=== PATIENT | female | born 1950 | race Caucasian/White ===

== ENCOUNTER → 2018-02-06 09:56 | Outpatient (CLI) | payer BC, MEDICARE ==
[2015-02-17 13:55] VITALS: BMI 16.4
[~2018-02-06 09:56] MED LIST: AMITRIPTYLINE100 MG PO; CARAFATE1 G/10 ML PO; DEMADEX20 MG PO; HYDROCODONE-APA1 TAB PO; K-DUR20 MEQ PO; K-TAB10 MEQ PO; LEVSIN/ANASP0.125 MG PO; MIDODRINE HCL10 MG PO; PEPCID40 MG PO; PHENERGAN25 M1 PO; PRILOSEC20 MG PO; SENOKOT-S TABLE1 TAB PO; TYLENOL W/CODEI1 TAB PO; ULTRAM50 MG PO; ZANAFLEX2 M1 PO; ZOFRAN4 MG PO
== END | disposition home or self-care (01) ==
LOC: D.MRI 09:56
DX: M54.16 Radiculopathy, lumbar region (principal)

== ENCOUNTER 2018-07-26 07:45 | Inpatient (IN) | payer MEDICARE, BC ==
[~2018-07-26] VITALS: Ht 157.5 cm; Wt 27.7 kg
[2018-07-26] MEDS ORDERED: CARDIZEM LA120 MG PO (07:57)
[2018-07-26 10:08] LABS: BASOPHILS 0.2 % (0-2); EOSINOPHILS 0.1 % (0-7); HEMATOCRIT 45.2 % (36.0-48.0); HEMOGLOBIN 14.6 g/dL (12-16); IMMATURE GRANULOCYTES 0.5 % (0-5); LYMPHOCYTES 8.6 % (15-50); MCH 30.4 pg (26.0-34.0); MCHC 32.3 g/dL (31.0-37.0); MEAN PLATELET VOLUME 9.8 fL (7.4-10.4); MONOCYTES 5.2 % (2-11); NEUTROPHILS 85.4 % (40-80); PLATELET COUNT 209 10x3/uL (130-400); RBC 4.81 10x6/uL (4.00-5.40); RDW 15.9 % (11.5-14.5)
[2018-07-26 10:15] LABS: APPEARANCE HAZY (CLEAR); BACTERIA FEW /hpf (NONE SEEN); COLOR YELLOW (YELLOW); EPITHELIAL CELLS 0-5 /hpf (0-5); SPECIFIC GRAVITY 1.015 (1.005-1.020)
[2018-07-26 10:16] LABS: RED CELLS - URINE OCC /hpf (0-5); WHITE CELLS - URINE RARE /hpf (0-5)
[2018-07-26 10:31] LABS: ALBUMIN 3.7 g/dL (3.4-5.0); ANION GAP 14.6 mmol/L (8-16); BILIRUBIN - TOTAL 0.44 mg/dL (0.2-1.3); CALCIUM 9.1 mg/dL (8.5-10.1); CARBON DIOXIDE 28.4 mmol/L (21.0-32.0); CREATININE - SERUM 1.6 mg/dL (0.6-1.3); PROTEIN - SERUM 6.9 g/dL (6.4-8.2)
--- NOTE | 2018-07-26 13:04 | MORECARE ---
CASE MANAGEMENT DISCHARGE SUMMARY PATIENT: KARTHIK MYRICK UNIT: [id number] ADM DATE: 07/26/18 AGE: 67 : 48 SEX: F ROOM/BED: D.1205 AUTHOR: ASHISH HERRERA PHYSICIAN: REFERRING PHYSICIAN: SEAN CHOW MD DATE OF SERVICE: 07/26/18 Discharge Plan Patient Name: KARTHIK MYRICK [facility] [facility] 1950 Planned Disposition: Anticipated Discharge Date: 07/29/18 Discharge Date: Expected LOS: 3 Initial Reviewer: [email or web address] Initial Review Date: 07/26/2018 Generated: 07/26/18 2:04 pm DCPIA - Discharge Planning Initial Assessment Updated by [email or web address]: Cookie Haile on 07/26/18 1:03 pm * Is the patient Alert and Oriented? Yes * How many steps to enter\exit or inside your home? Two * PCP Dr. Chow * Pharmacy [facility] on [address] * Preadmission Environment Home with Family * ADLs Independent * Equipment Glucometer * List name and contact numbers for known caregivers / representatives who currently or will assist patient after discharge: Chris Myrick - [facility] - [phone] * Verbal permission to speak to the caregivers and representatives has been obtained from the patient. Yes * Community resources currently utilized None * Additional services required to return to the preadmission environment? No * Can the patient safely return to the preadmission environment? Yes * Has this patient been hospitalized within the prior 30 days at any hospital? No Patient Name: KARTHIK MYRICK Page [id number] at 1304 All edits/amendments must be made on the electronic document DICTATION DATE: 07/26/18 1304 GROUND CREWMAN AIRCRAFT SUPPORT: TINY 07/26/18 1304 RPT#: [id number] DC DATE: STATUS: ADM IN [facility] [address] [place] [address] END OF REPORT
--- NOTE | 2018-07-26 13:12 | MORECARE ---
CASE MANAGEMENT DISCHARGE SUMMARY PATIENT: KARTHIK MYRICK UNIT: [id number] ADM DATE: 07/26/18 AGE: 67 : 48 SEX: F ROOM/BED: D.1205 AUTHOR: SHARON,DOC PHYSICIAN: REFERRING PHYSICIAN: SEAN CHOW MD DATE OF SERVICE: 07/26/18 Discharge Plan Patient Name: KARTHIK MYRICK Facility: [facility]:[place] : 1950 Planned Disposition: Anticipated Discharge Date: 07/29/18 Discharge Date: Expected LOS: 3 Initial Reviewer: [email or web address] Initial Review Date: 07/26/2018 Generated: 07/26/18 2:11 pm DCP- Discharge Planning Updated by [email or web address]: Cookie Haile on 07/26/18 12:[address] Patient Name: KARTHIK MYRICK Admission Status: ER Accout number: [id number] Admission Date: 07-26-2018 : 1950 Admission Diagnosis: Attending: SEAN CHOW Current LOS: 1 Anticipated DC Date: 07-29-2018 Planned Disposition: Primary Insurance: MEDICARE A & B Discharge Planning Comments: CM met with patient and her spouse to complete initial dc planning assessment. CM educated patient on the CM role and verbal consent given by patient to complete assessment. Patient lives at home with her . She reports she is weak and falls frequently. CM asked how many times she falls in a month and she stated probably 3-4 times in a month. At discharge patient plans to return home with her and feels this is a safe discharge. CM discussed availability of home health, rehab services, and medical equipment. Patient denied the need for home health or any other resources at this time. CM will continue to follow and will assist as needed with dc plans/needs. Director Bioinformatics: Cookie Haile RN, [facility] DCPIA - Discharge Planning Initial Assessment Updated by [email or web address]: Cookie Haile on 07/26/18 1:03 pm * Is the patient Alert and Oriented? Yes * How many steps to enter\exit or inside your home? Two * PCP Dr. Chow * Pharmacy [facility] on [facility] * Preadmission Environment Home with Family * ADLs Independent * Equipment Glucometer * List name and contact numbers for known caregivers / representatives who currently or will assist patient after discharge: Chris yMrick - [facility] - [phone] * Verbal permission to speak to the caregivers and representatives has been obtained from the patient. Yes * Community resources currently utilized None * Additional services required to return to the preadmission environment? No * Can the patient safely return to the preadmission environment? Yes * Has this patient been hospitalized within the prior 30 days at any hospital? No Last DP export: 07/26/18 12:04 p Patient Name: KARTHIK MYRICK Page [phone] at 1312 All edits/amendments must be made on the electronic document DICTATION DATE: 07/26/181310 DAMAGE PREVENTION COORDINATOR: TINY 07/26/181310 RPT#: [id number] DC DATE: STATUS: ADM IN [facility] [address] [place] [address] END OF REPORT
[2018-07-26 13:27] VITALS: BP 121/70; BMI 11.2
[2018-07-26] MEDS ORDERED: MACROBID100 MG PO (13:32)
[2018-07-26] MEDS ORDERED: CREON (PANCRELI1 CAP PO (13:33)
--- NOTE | 2018-07-26 15:30 | NUR ---
PATIENT REFUSED BLUE CRABBER MORPHINE. STATES "MY PAIN IS NOT THAT BAD."
[2018-07-26 17:34] VITALS: BP 100/65
--- NOTE | 2018-07-26 17:35 | NUR ---
DR SWAIN BY TO SEE PATIENT. VISITING WITH FAMILY. DENIES ANY NEEDS AT THIS TIME.
--- NOTE | 2018-07-26 18:20 | NUR ---
DR MONSIVAIS BY TO SEE PATIENT. OK TO LEAVE IVF'S INFUSING AT 75 CC/HR VIA PUMP.
--- NOTE | 2018-07-26 18:41 | NUR ---
RESTING QUIETLY IN BED. FAMILY ALL GONE. JOSE ANTONIO MAT APPLIED. CALL LIGHT WITHIN REACH.
--- NOTE | 2018-07-26 19:37 | NUR ---
PT IN BED. DENIES NEEDS AT THIS TIME.
[2018-07-26 20:45] VITALS: BP 105/64
[2018-07-27 00:50] VITALS: BP 156/81
--- NOTE | 2018-07-27 05:22 | NUR ---
I have reviewed this patient and I concur with the Shift Assessment completed by the Licensed Practical Nurse today this shift.
[2018-07-27 05:43] VITALS: BP 120/69
[2018-07-27 06:36] LABS: BASOPHILS 0.2 % (0-2); EOSINOPHILS 0.9 % (0-7); IMMATURE GRANULOCYTES 0.5 % (0-5); LYMPHOCYTES 15.2 % (15-50); MCHC 31.7 g/dL (31.0-37.0); MCV 94.5 fL (80.0-100.0); MEAN PLATELET VOLUME 9.6 fL (7.4-10.4); MONOCYTES 7.9 % (2-11); NEUTROPHILS 75.3 % (40-80); PLATELET COUNT 173 10x3/uL (130-400); RDW 15.8 % (11.5-14.5)
[2018-07-27 06:50] LABS: HEMATOCRIT 32.8 % (36.0-48.0); HEMOGLOBIN 10.4 g/dL (12-16); RBC 3.47 10x6/uL (4.00-5.40); WBC 5.7 10x3/uL (4.8-10.8)
[2018-07-27 07:34] LABS: BILIRUBIN - TOTAL 0.37 mg/dL (0.2-1.3); CALCIUM 7.7 mg/dL (8.5-10.1); CREATININE - SERUM 1.2 mg/dL (0.6-1.3); PROTEIN - SERUM 5.5 g/dL (6.4-8.2)
[2018-07-27 07:37] LABS: ALBUMIN 2.6 g/dL (3.4-5.0); ANION GAP 16.3 mmol/L (8-16); CARBON DIOXIDE 18.6 mmol/L (21.0-32.0); POTASSIUM - SERUM 4.9 mmol/L (3.5-5.1)
[2018-07-27 09:07] VITALS: BP 118/72
--- NOTE | 2018-07-27 11:25 | NUR ---
PT SITTING UP IN BED RESTING. A/O X 4. FAMILY AT BEDSIDE. PROBE OPERATOR ROUNDING ON PT. VITALS STABLE. TOOK MEDS WITHOUT DIFFICULTY. L FOREARM NS @ 75. RM AIR. C/O BACK PAIN FROM PREVIOUS FALL AT HOME. SCHEDULED ULTRAM GIVEN. DENIES FURTHER CONERNS AT THIS TIME. BED LOWERED AND LOCKED. CL IN REACH. WILL CPOC.
[2018-07-27 12:00] VITALS: Ht 157.5 cm; Wt 27.7 kg
[2018-07-27 13:50] VITALS: BP 109/62
[2018-07-27 17:35] VITALS: BP 104/53
--- NOTE | 2018-07-27 17:44 | NUR ---
PT WALKED INTO [place] AND BACK WITH PHYSICAL THERAPY TODAY. GAIT UNSTEADY AND WEAK.
--- NOTE | 2018-07-27 18:35 | NUR ---
I have reviewed this patient and I concur with the Shift Assessment completed by the Licensed Practical Nurse today this shift.
--- NOTE | 2018-07-27 19:19 | NUR ---
PT IN BED. DENIES NEEDS AT THIS TIME.
[2018-07-27 19:30] VITALS: BP 105/59
--- NOTE | 2018-07-28 01:20 | NUR ---
I have reviewed this patient and I concur with the Shift Assessment completed by the Licensed Practical Nurse today this shift.
[2018-07-28 02:14] LABS: BASOPHILS 0.3 % (0-2); HEMATOCRIT 30.4 % (36.0-48.0); HEMOGLOBIN 9.5 g/dL (12-16); IMMATURE GRANULOCYTES 0.5 % (0-5); LYMPHOCYTES 18.3 % (15-50); MCH 30.1 pg (26.0-34.0); MCHC 31.3 g/dL (31.0-37.0); MCV 96.2 fL (80.0-100.0); MEAN PLATELET VOLUME 9.5 fL (7.4-10.4); MONOCYTES 6.1 % (2-11); NEUTROPHILS 73.8 % (40-80); PLATELET COUNT 144 10x3/uL (130-400); RBC 3.16 10x6/uL (4.00-5.40); RDW 15.8 % (11.5-14.5); WBC 3.9 10x3/uL (4.8-10.8)
[2018-07-28 02:29] LABS: ALBUMIN 2.2 g/dL (3.4-5.0); ALKALINE PHOSPHATASE 35 U/L (46-116); ALT (SGPT) 18 U/L (10-68); BILIRUBIN - TOTAL 0.17 mg/dL (0.2-1.3); CALC OSMOLALITY 280 mosm/kg (275-300); CALCIUM 7.2 mg/dL (8.5-10.1); CARBON DIOXIDE 17.2 mmol/L (21.0-32.0); CHLORIDE - SERUM 112 mmol/L (98-107); GLUCOSE 81 mg/dL (74-106); POTASSIUM - SERUM 5.3 mmol/L (3.5-5.1); PROTEIN - SERUM 4.6 g/dL (6.4-8.2); SODIUM 139 mmol/L (136-145); UREA NITROGEN 23 mg/dL (7-18); eGFR NON AFRICAN AMERICAN 75 mL/min (90-120)
[2018-07-28 02:33] LABS: CREATININE - SERUM 0.8 mg/dL (0.6-1.3)
[2018-07-28 04:00] VITALS: BP 106/58
[2018-07-28 06:38] LABS: BASOPHILS 0.3 % (0-2); EOSINOPHILS 1.2 % (0-7); HEMATOCRIT 31.6 % (36.0-48.0); HEMOGLOBIN 9.8 g/dL (12-16); IMMATURE GRANULOCYTES 0.6 % (0-5); LYMPHOCYTES 18.8 % (15-50); MCH 29.6 pg (26.0-34.0); MCV 95.5 fL (80.0-100.0); MEAN PLATELET VOLUME 9.6 fL (7.4-10.4); MONOCYTES 6.2 % (2-11); NEUTROPHILS 72.9 % (40-80); PLATELET COUNT 159 10x3/uL (130-400); RBC 3.31 10x6/uL (4.00-5.40); WBC 3.4 10x3/uL (4.8-10.8)
[2018-07-28 06:52] LABS: % SATURATION 43 % (15-55); IRON 94 ug/dl (35-150); TOTAL IRON BIND CAPACITY 215 ug/dl (260-445); UNSAT IRON BIND CAPACITY 121 ug/dl (150-375)
[2018-07-28 07:19] LABS: ALBUMIN 2.2 g/dL (3.4-5.0); ALKALINE PHOSPHATASE 38 U/L (46-116); ALT (SGPT) 19 U/L (10-68); BILIRUBIN - TOTAL 0.24 mg/dL (0.2-1.3); CALC OSMOLALITY 281 mosm/kg (275-300); CALCIUM 7.6 mg/dL (8.5-10.1); CARBON DIOXIDE 16.1 mmol/L (21.0-32.0); CHLORIDE - SERUM 112 mmol/L (98-107); CREATININE - SERUM 0.7 mg/dL (0.6-1.3); FERRITIN 97 ng/mL (3-244); GLUCOSE 75 mg/dL (74-106); SODIUM 141 mmol/L (136-145); UREA NITROGEN 18 mg/dL (7-18); eGFR NON AFRICAN AMERICAN 88 mL/min (90-120)
--- NOTE | 2018-07-28 07:29 | NUR ---
PT LAYING IN BED RESTING. C/O PAIN IN BACK. IV TO L FOREARM WITH NS @ 75 CC/HOUR. NO EDEMA NOTED. RM AIR. DENIES FURTHER COCNERNS AT THIS TIME. BED LOWERED AND LOCKED. CL IN REACH. WILL CPOC.
[2018-07-28 08:00] VITALS: BP 101/55
--- NOTE | 2018-07-28 10:09 | NUR ---
PT TOOK MEDS WITHOUT DIFFICULTY. FAMILY AT BEDSIDE. WILL CPOC.
[2018-07-28 12:00] VITALS: BP 112/69
--- NOTE | 2018-07-28 12:01 | NUR ---
PT UP WALKING AROUND NURSES STATION WITH PHYSICAL THERAPY
--- NOTE | 2018-07-28 13:25 | NUR ---
OT NOTE: PT REPORTED FEELING BETTER..UP IN CHAIR EATING LUNCH. STATED THAT IT WAS HER BIRTHDAY TODAY. REPORTED THAT SHE AMBULATED WITH PHYS THERAPY EARLIER. ABLE TO TRANSFER WITH MIN ASSIST. LALO GARCIA, OTR/L
--- NOTE | 2018-07-28 13:45 | NUR ---
I have reviewed this patient and I concur with the Shift Assessment completed by the Licensed Practical Nurse today this shift.
[2018-07-28 16:22] VITALS: BP 120/69
[2018-07-28 19:38] VITALS: BP 98/60
--- NOTE | 2018-07-28 20:08 | NUR ---
GREETED PATIENT AND INTRODUCED MYSELF HER NURSE FOR THE EVENING. PATIENT IS LAYING IN BED WATCHING TV. STATES PAIN IS 9/10 IN MIDDLE BACK. WCTM. CALL LIGHT IN REACH.
--- NOTE | 2018-07-28 23:11 | NUR ---
PATIENT RESTING QUIETLY. RESPIRATIONS EVEN. DENIES ANY NEEDS AT THIS TIME. CALL LIGHT IN REACH.
[2018-07-29 00:43] VITALS: BP 92/55
--- NOTE | 2018-07-29 03:13 | NUR ---
PATIENT ASLEEP WITH EYES CLOSED LAYING IN SUPINE POSITION. RESPIRATIONS EVEN. NO SIGNS OF DISTRESS. CALL LIGHT IN REACH.
[2018-07-29 04:24] VITALS: BP 108/61
--- NOTE | 2018-07-29 05:18 | NUR ---
PATIENT AWAKE AND ASSISTED TO BATHROOM. PATIENT HAD CLEAR YELLOW URINE. BACK TO BED AND REPOSITIONED FOR COMFORT. CALL LIGHT IN REACH.
[2018-07-29 06:48] LABS: BASOPHILS 0.2 % (0-2); EOSINOPHILS 1.2 % (0-7); HEMATOCRIT 34.2 % (36.0-48.0); HEMOGLOBIN 10.8 g/dL (12-16); IMMATURE GRANULOCYTES 0.7 % (0-5); LYMPHOCYTES 14.5 % (15-50); MCH 30.1 pg (26.0-34.0); MCHC 31.6 g/dL (31.0-37.0); MCV 95.3 fL (80.0-100.0); MEAN PLATELET VOLUME 9.1 fL (7.4-10.4); MONOCYTES 7.4 % (2-11); PLATELET COUNT 153 10x3/uL (130-400); RBC 3.59 10x6/uL (4.00-5.40); RDW 16.1 % (11.5-14.5); WBC 4.1 10x3/uL (4.8-10.8)
[2018-07-29 08:16] LABS: CALCIUM 8.3 mg/dL (8.5-10.1); CHLORIDE - SERUM 111 mmol/L (98-107); CREATININE - SERUM 0.7 mg/dL (0.6-1.3); GLUCOSE 78 mg/dL (74-106); POTASSIUM - SERUM 4.6 mmol/L (3.5-5.1); SODIUM 140 mmol/L (136-145); eGFR NON AFRICAN AMERICAN 88 mL/min (90-120)
[2018-07-29 08:27] LABS: CALC OSMOLALITY 276 mosm/kg (275-300); CARBON DIOXIDE 22.5 mmol/L (21.0-32.0); UREA NITROGEN 11 mg/dL (7-18)
[2018-07-29 09:07] VITALS: BP 102/60
[2018-07-29 12:28] VITALS: BP 109/59
[2018-07-29] MEDS ORDERED: FERROUS SULFAT325 MG PO (13:04)
[2018-07-29] MEDS ORDERED: VITAMIN D31000 UNI2 PO (13:07)
--- NOTE | 2018-07-29 13:14 | NUR ---
Pt is on a soft gluten free diet. Pt reports to RD that she broke her jaw in October. Prior to this she weighed 90-100lb. Pt reports she is still losing weight and had a recent weight loss. Pt states the kitchen is doing a good job of providing Gluten free diet Pt will not drink supplements but does like coke floats and chocolate shakes Will add a shake daily Weigh daily-if pt loses any more weight, may want to consider alternate nutritrion support RD following per protocol
--- NOTE | 2018-07-29 16:07 | NUR ---
PATIENT DISCHARGED VIA W/C WITH [facility] AT 1450 IV D/C'D AT 1435 DISCHARGED VIA W/C TO PRIVATE VEHICLE AND ALL BELONGINGS SENT WITH PT.
--- NOTE | 2018-07-29 17:19 | MORECARE ---
CASE MANAGEMENT DISCHARGE SUMMARY PATIENT: KARTHIK MYRICK UNIT: [id number] ADM DATE: 07/26/18 AGE: 68 : 48 SEX: F ROOM/BED: D.1205 AUTHOR: SHARON,DOC PHYSICIAN: REFERRING PHYSICIAN: SEAN CHOW MD DATE OF SERVICE: 07/29/18 Discharge Plan Patient Name: KARTHIK MYRICK Facility: [facility]:[place] : 1950 Planned Disposition: Anticipated Discharge Date: 07/29/18 Discharge Date: 07/29/2018 Expected LOS: 3 Initial Reviewer: [email or web address] Initial Review Date: 07/26/2018 Generated: 07/29/18 6:19 pm Comments DCP- Discharge Planning Updated by [email or web address]: Huma Jean on 07/29/18 4:[address] LATE ENTRY CM SPOKE WITH PATIENT PRIOR TO DISCHARGE. SHE WAS DRESSED AND READY TO DISCHARGE TO HOME. HER WAS PROVIDING TRANSPORTATION TO HOME. CM REOFFERED HOMEHEALTH SERVICES. PATIENT DENIED NEED . CM EXPLAINED HOW TO OBTAIN HOME HEALTH SHOULD SHE DESIRE POST DISCHARGE. DCP- Discharge Planning Updated by [email or web address]: Cookie Haile on 07/26/18 12:[address] Patient Name: KARTHIK MYRICK Admission Status: ER Accout number: [id number] Admission Date: 07-26-2018 : 1950 Admission Diagnosis: Attending: SEAN CHOW Current LOS: 1 Anticipated DC Date: 07-29-2018 Planned Disposition: Primary Insurance: MEDICARE A & B Discharge Planning Comments: CM met with patient and her spouse to complete initial dc planning assessment. CM educated patient on the CM role and verbal consent given by patient to complete assessment. Patient lives at home with her . She reports she is weak and falls frequently. CM asked how many times she falls in a month and she stated probably 3-4 times in a month. At discharge patient plans to return home with her and feels this is a safe discharge. CM discussed availability of home health, rehab services, and medical equipment. Patient denied the need for home health or any other resources at this time. CM will continue to follow and will assist as needed with dc plans/needs. Lepidopterist: Cookie Haile RN, [facility] DCPIA - Discharge Planning Initial Assessment Updated by [email or web address]: Cookie Haile on 07/26/18 1:03 pm * Is the patient Alert and Oriented? Yes * How many steps to enter\exit or inside your home? Two * PCP Dr. Chow * Pharmacy [facility] on [address] * Preadmission Environment Home with Family * ADLs Independent * Equipment Glucometer * List name and contact numbers for known caregivers / representatives who currently or will assist patient after discharge: Chris Myrick - [facility] - [phone] * Verbal permission to speak to the caregivers and representatives has been obtained from the patient. Yes * Community resources currently utilized None * Additional services required to return to the preadmission environment? No * Can the patient safely return to the preadmission environment? Yes * Has this patient been hospitalized within the prior 30 days at any hospital? No Coverage Notice Reviewer: [email or web address] - Huma Jean Notice Issued Date-Time: 07/29/2018 14:15 Notice Type: IM Discharge Notice Notice Delivered To: Patient Relationship to Patient: Self Cold Press Loader Name: Delivery Method: HAND - Hand Delivered Mariana Days: Prior Verbal Notification: Recipient Understood Notice: Yes Recipient Signature: Yes Med Rec Note Co-signed by Attending: Coverage Notice Comment: CM EXPLAINED D/C IMM. PATIENT STATES SHE UNDERSTOOD. D/C IMM SERVED. COPY TO PATIENT AND COPY TO HARD COVER CHART. Last DP export: 07/26/18 12:12 p Patient Name: KARTHIK MYRICK Page [phone] at 1719 All edits/amendments must be made on the electronic document DICTATION DATE: 07/29/181718 REFRIGERATING ENGINEER HEAD: TINY 07/29/181718 RPT#: [id number] DC DATE:07/29/18 STATUS: DIS IN [facility] [address] [place] [address] END OF REPORT
--- NOTE | 2018-07-30 08:41 | MORECARE ---
CASE MANAGEMENT DISCHARGE SUMMARY PATIENT: KARTHIK MYRICK UNIT: [id number] ADM DATE: 07/26/18 AGE: 68 : 48 SEX: F ROOM/BED: D.1205 AUTHOR: SHARON,DOC PHYSICIAN: REFERRING PHYSICIAN: SEAN CHOW MD DATE OF SERVICE: 07/30/18 Discharge Plan Patient Name: KARTHIK MYRICK Facility: [facility]:[place] : 1950 Planned Disposition: Home Anticipated Discharge Date: 07/29/18 Discharge Date: 07/29/2018 Expected LOS: 3 Initial Reviewer: [email or web address] Initial Review Date: 07/26/2018 Generated: 07/30/18 9:41 am Comments DCP- Discharge Planning Updated by [email or web address]: Huma Jean on 07/29/18 4:[address] LATE ENTRY CM SPOKE WITH PATIENT PRIOR TO DISCHARGE. SHE WAS DRESSED AND READY TO DISCHARGE TO HOME. HER WAS PROVIDING TRANSPORTATION TO HOME. CM REOFFERED HOMEHEALTH SERVICES. PATIENT DENIED NEED . CM EXPLAINED HOW TO OBTAIN HOME HEALTH SHOULD SHE DESIRE POST DISCHARGE. DCP- Discharge Planning Updated by [email or web address]: Cookie Haile on 07/26/18 12:[address] Patient Name: KARTHIK MYRICK Admission Status: ER Accout number: [id number] Admission Date: 07-26-2018 : 1950 Admission Diagnosis: Attending: SEAN CHOW Current LOS: 1 Anticipated DC Date: 07-29-2018 Planned Disposition: Primary Insurance: MEDICARE A & B Discharge Planning Comments: CM met with patient and her spouse to complete initial dc planning assessment. CM educated patient on the CM role and verbal consent given by patient to complete assessment. Patient lives at home with her . She reports she is weak and falls frequently. CM asked how many times she falls in a month and she stated probably 3-4 times in a month. At discharge patient plans to return home with her and feels this is a safe discharge. CM discussed availability of home health, rehab services, and medical equipment. Patient denied the need for home health or any other resources at this time. CM will continue to follow and will assist as needed with dc plans/needs. Pipelines Laborer: Cookie Haile RN, CCM DCPIA - Discharge Planning Initial Assessment Updated by [email or web address]: Cookie Haile on 07/26/18 1:03 pm * Is the patient Alert and Oriented? Yes * How many steps to enter\exit or inside your home? Two * PCP Dr. Chow * Pharmacy [facility] on [address] * Preadmission Environment Home with Family * ADLs Independent * Equipment Glucometer * List name and contact numbers for known caregivers / representatives who currently or will assist patient after discharge: Chris Myrick - [facility] - [phone] * Verbal permission to speak to the caregivers and representatives has been obtained from the patient. Yes * Community resources currently utilized None * Additional services required to return to the preadmission environment? No * Can the patient safely return to the preadmission environment? Yes * Has this patient been hospitalized within the prior 30 days at any hospital? No Coverage Notice Reviewer: [email or web address] - Huma Jean Notice Issued Date-Time: 07/29/2018 14:15 Notice Type: IM Discharge Notice Notice Delivered To: Patient Relationship to Patient: Self Restaurant Hospitality Manager Name: Delivery Method: HAND - Hand Delivered Mariana Days: Prior Verbal Notification: Recipient Understood Notice: Yes Recipient Signature: Yes Med Rec Note Co-signed by Attending: Coverage Notice Comment: CM EXPLAINED D/C IMM. PATIENT STATES SHE UNDERSTOOD. D/C IMM SERVED. COPY TO PATIENT AND COPY TO HARD COVER CHART. Last DP export: 07/29/18 4:19 p Patient Name: KARTHIK MYRICK Page [phone] at 0841 All edits/amendments must be made on the electronic document DICTATION DATE: 07/30/18839 JEWEL SUPERVISOR: TINY 07/30/18839 RPT#: [id number] DC DATE:07/29/18 STATUS: DIS IN [facility] [address] [place] [address] END OF REPORT
[2018-07-30 09:21] LABS: FOLATE (FOLIC ACID) - SERUM 10.3 ng/mL (>3.0)
== END 2018-07-29 16:26 | disposition home or self-care (01) | DRG 682 ==
LOC: D.ER 07:45 → D.M3 11:50
PROVIDERS: Family Medicine; Internal Medicine; ADMIT Family Medicine; ATTEND Family Medicine
DX: N17.0 Acute kidney failure with tubular necrosis (principal); E43 Unspecified severe protein-calorie malnutrition; E87.1 Hypo-osmolality and hyponatremia; E87.2 Acidosis; Z68.1 Body mass index [BMI] 19.9 or less, adult; I95.9 Hypotension, unspecified; R62.7 Adult failure to thrive; K21.9 Gastro-esophageal reflux disease without esophagitis; M54.9 Dorsalgia, unspecified; G89.29 Other chronic pain; M81.0 Age-related osteoporosis without current pathological fracture; K90.0 Celiac disease; W19.XXXA Unspecified fall, initial encounter; E87.6 Hypokalemia; D64.9 Anemia, unspecified

== ENCOUNTER 2019-01-26 17:24 | Emergency (ER) | payer MEDICARE, BC ==
[~2019-01-26] VITALS: Ht 157.5 cm; Wt 30.5 kg
[~2019-01-26 17:24] MED LIST changes: +CARDIZEM LA120 MG PO; +CREON (PANCRELI1 CAP PO; +FERROUS SULFAT325 MG PO; +MACROBID100 MG PO; +VITAMIN D31000 UNI2 PO; -ZANAFLEX2 M1 PO; +ZANAFLEX4 MG PO
[2019-01-26 17:28] VITALS: Ht 157.5 cm; Wt 30.5 kg
[2019-01-26 18:23] LABS: ALBUMIN 3.1 g/dL (3.4-5.0); ANION GAP 8.3 mmol/L (8-16); BILIRUBIN - TOTAL 0.2 mg/dL (0.2-1.3); CALCIUM 8.4 mg/dL (8.5-10.1); CARBON DIOXIDE 30.4 mmol/L (21.0-32.0); CREATININE - SERUM 0.9 mg/dL (0.6-1.3); HEMATOCRIT 32.6 % (36.0-48.0); HEMOGLOBIN 10.5 g/dL (12-16); LYMPHOCYTES 11.6 % (15-50); MCH 30.7 pg (26.0-34.0); MCHC 32.2 g/dL (31.0-37.0); MCV 95.3 fL (80.0-100.0); MEAN PLATELET VOLUME 8.4 fL (7.4-10.4); NEUTROPHILS 81.6 % (40-80); POTASSIUM - SERUM 3.7 mmol/L (3.5-5.1); PROTEIN - SERUM 6.3 g/dL (6.4-8.2); RBC 3.42 10x6/uL (4.00-5.40); RDW 13.5 % (11.5-14.5)
[2019-01-26 18:24] LABS: PLATELET COUNT 344 10x3/uL (130-400)
[2019-01-26 18:36] LABS: APPEARANCE CLEAR (CLEAR); BILIRUBIN NEGATIVE (NEGATIVE); COLOR STRAW (YELLOW); GLUCOSE NEGATIVE (NEGATIVE); KETONE NEGATIVE (NEGATIVE); NITRITE NEGATIVE (NEGATIVE); PROTEIN NEGATIVE (NEGATIVE); SPECIFIC GRAVITY 1.005 (1.005-1.020); UROBILINOGEN NORMAL (NORMAL)
[2019-01-26] MEDS ORDERED: HYDROCODON-ACE1 EAC7 PO (18:41)
[2019-01-26 18:50] VITALS: BP 103/56
== END 2019-01-26 18:58 | disposition home or self-care (01) ==
LOC: D.ER 17:24
PROVIDERS: Emergency Medicine
DX: S42.292A Other displaced fracture of upper end of left humerus, initial encounter for closed fracture (principal); K21.9 Gastro-esophageal reflux disease without esophagitis; W19.XXXA Unspecified fall, initial encounter; K86.1 Other chronic pancreatitis

== ENCOUNTER 2019-01-31 11:00 | Inpatient (IN) | payer MEDICARE, BC ==
[~2019-01-31] VITALS: Ht 167.6 cm; Wt 28.1 kg
[~2019-01-31 11:00] MED LIST changes: +HYDROCODON-ACE1 EAC7 PO
[2019-02-03] MEDS ORDERED: K-TAB10 MEQ PO (14:02)
[2019-02-03] MEDS ORDERED: DEMADEX20 MG PO (14:05)
[2019-02-03 15:32] LABS: APPEARANCE CLEAR (CLEAR); BILIRUBIN NEGATIVE (NEGATIVE); COLOR YELLOW (YELLOW); GLUCOSE NEGATIVE (NEGATIVE); KETONE NEGATIVE (NEGATIVE); NITRITE NEGATIVE (NEGATIVE); PROTEIN NEGATIVE (NEGATIVE); SPECIFIC GRAVITY 1.015 (1.005-1.020); UROBILINOGEN NORMAL (NORMAL)
[2019-02-03 15:35] LABS: BASOPHILS 0.3 % (0-2); EOSINOPHILS 1.7 % (0-7); HEMATOCRIT 33.4 % (36.0-48.0); IMMATURE GRANULOCYTES 0.4 % (0-5); LYMPHOCYTES 19.1 % (15-50); MCH 30.7 pg (26.0-34.0); MCHC 32.9 g/dL (31.0-37.0); MCV 93.3 fL (80.0-100.0); MEAN PLATELET VOLUME 8.9 fL (7.4-10.4); MONOCYTES 6.6 % (2-11); NEUTROPHILS 71.9 % (40-80); PLATELET COUNT 363 10x3/uL (130-400); RBC 3.58 10x6/uL (4.00-5.40); RDW 13.9 % (11.5-14.5); WBC 7.1 10x3/uL (4.8-10.8)
[2019-02-03 15:53] LABS: CALC OSMOLALITY 278 mosm/kg (275-300); CALCIUM 9.2 mg/dL (8.5-10.1); CHLORIDE - SERUM 99 mmol/L (98-107); CREATININE - SERUM 0.8 mg/dL (0.6-1.3); GLUCOSE 96 mg/dL (74-106); POTASSIUM - SERUM 3.9 mmol/L (3.5-5.1); SODIUM 136 mmol/L (136-145); UREA NITROGEN 33 mg/dL (7-18); eGFR NON AFRICAN AMERICAN 75 mL/min (90-120)
[2019-02-03 16:00] LABS: APTT 30.1 SECONDS (22.8-39.4); INR 0.97 (0.85-1.17); PROTIME 12.4 SECONDS (11.6-15.0)
[2019-02-04 12:04] VITALS: BMI 10.1
--- NOTE | 2019-02-04 21:00 | NUR ---
REC'D FROM PACU PER BED TO ROOM 2204 68 Y/O W/FE PER SERVICES DR. KILGORE POST OP LT TOTAL SHOULDER DRSG C/D/I WITH SLING ON FAMILY MEMBERS AT BEDSIDE IV PATENT RT FOREARM OF LR AT 75CC'S/HR. MONITORING VS.
[2019-02-04 21:01] VITALS: BP 109/70
--- NOTE | 2019-02-04 22:49 | NUR ---
MEDS GIVEN PER JUL. C/O PAIN INCISIONAL AREA. RATES PAIN LEVEL. DILAUDID 0.25MG IVP GIVEN FOR PAIN CONTROL. SPOUSE AT BEDSIDE.
[2019-02-04 22:57] VITALS: BP 107/60; BMI 10.0
[2019-02-05 01:13] VITALS: BP 77/52
--- NOTE | 2019-02-05 02:25 | NUR ---
PT DENIES VOIDING SINCE 0600 ON 02/04 TO HER KNOWLEDGE. ABDOMEN DISTENDED, REPORTS URGE TO VOID. PT ATTEMPTED TO USE BEDPAN, BUT STATES INABILITY TO VOID. BLADDER SCAN READ 771ML. PT VERBALIZED CONSENT THAT MAY STAY IN ROOM DURING IN&OUT CATH. CATH PERFORMED, EMTIED 800ML CLEAR, YELLOW URINE. PT TOLERATED WELL, REPORTS RELIEF. INFORMED SHE NEEDS TO VOID ON HER OWN WITHIN THE NEXT 6-8HRS. PT VERBALIZED UNDERSTANDING. WILL CONTINUE TO MONITOR.
--- NOTE | 2019-02-05 03:49 | NUR ---
DRESSING TO RIGHT HIP C/D/I. DRESSING TO LEFT HIPPARTIALLY COVERING WOUND. OUTTER DRESSING REMOVED, PACKING LEFT IN PLACE. NEW DRESSING APPLIED OVER WOUND. PT TOLERATED WELL, REPORTS WOUNDS ARE PRESSURE SORES ACQUIRED AFTER AFTER WEIGHTLOSS FROM PREVIOUS ILLNESS.
--- NOTE | 2019-02-05 04:00 | NUR ---
I have reviewed this patient and I concur with the Shift Assessment completed by the Licensed Practical Nurse today this shift.
[2019-02-05 05:45] VITALS: BP 100/58
--- NOTE | 2019-02-05 06:56 | OP ---
PATIENT NAME: KARTHIK MYRICK MEDICAL RECORD: [id number] :[birth year] LOCATION:D.MS [id number] ADMISSION DATE:02/04/19 SURGEON: RODEGR KILGORE DO DATE OF OPERATION: 02/04/2019 PROCEDURE PERFORMED: Left reverse total shoulder arthroplasty. PREOPERATIVE DIAGNOSIS: Displaced left proximal humerus fracture. POSTOPERATIVE DIAGNOSIS: Displaced left proximal humerus fracture. INDICATIONS: Ms. Myrick is a 68-year-old severely malnourished and frail female who fell and broke her proximal humerus in 4 different parts and had fallen off of the humeral shaft. The patient was doing well, was treated nonoperatively but then it displaced and she says she could not stand the pain and wanted something done surgically. I informed her of the risks including a severe fracture, need for further surgery, infection, bleeding, damage to nerves and vessels, loss of use of that arm and the screw cut out. She is aware of those risks as well as blood clots, even and she signed the consent. SURGEON: Rodger Kilgore DO DESCRIPTION OF THE PROCEDURE: The patient received block by anesthesia in the preoperative area. He was taken to the operative suite, given 300 mg clindamycin. She was laid in the supine position and LMA was placed after sedation. The left shoulder and upper extremity were prepped and draped in sterile fashion. A timeout was performed and everyone was in agreement with the correct side, site, patient and procedure. Incision then began with a deltopectoral interval. Careful dissection was made down through the skin down to the deltopectoral interval. This was opened up and the long head of the biceps tendon was tagged and sutured to the pec tendon. Once that was completed, the biceps tendon was cut and followed up through the rotator interval, the subscapularis was then taken off the anterior humerus. The lesser tuberosity and greater tuberosity were both fractured as well as of the surgical neck. A neck cut was made in order to remove the head and the glenoid was exposed. The labrum was removed and a centering pin was used and then, the reamer was used and the centering pin was removed and measured to have a #30 screw with a 6.5 x 30 screw and a central peg. This was put into the glenoid and did not buy it very well. It was then impacted into place and 3 peripheral screws were put in and two locking, which was 22 in length on the superior, anterior, and the posterior inferior and then #14 cortical screws on the posterior superior. These did have good bite and were solid. The glenosphere was then put on and it was a #33 lateralized. The humerus was then exposed and the shaft was opened up and broached to a #3. The #3 stem was then used with a 6 mm tray. This was then impacted into place and then the shoulder was reduced. This fit very well and there was no shucking noted and good tension on the deltoid as well as the conjoined tendon. The patient can reach her mouth without any problems with the left arm. Any bleeding was coagulated throughout the case with the Aquamantys. The deltopectoral interval was then elevated and irrigated the shoulder and the tobramycin and vancomycin powder was put in the shoulder as well as Surgicel powder and then the deltopectoral interval was loosely closed with #1 Vicryl in a simple fashion and then the skin OPERATIVE REPORT [id number] KARTHIK MYRICK was closed with 4-0 Monocryl in a running fashion due to the very thin skin and then Prineo glue was placed on the skin. She was then awakened and taken to the recovery in stable condition. Blood loss approximately 25 mL. COMPLICATIONS: None. TRANSINT:[id number] Voice Confirmation ID: [id number] DOCUMENT ID: [id number] RODGER KILGORE DO at 0656 CC: [id number] DICTATION DATE: 02/04/192015 EVALUATION MANAGER: 02/05/19 0342 [facility] [place] [id number] [place] [id number]
--- NOTE | 2019-02-05 07:01 | NUR ---
PT AMBULATED TO BATHROOM, STAND BY ASSIST. VOIDED CLEAR YELLOW URINE. REQUESTS A FEW MINUTES. INFORMED TO PULL STRING WHEN DONE.
[2019-02-05 08:11] VITALS: BP 107/64
[2019-02-05 11:41] LABS: BASOPHILS 0.1 % (0-2); EOSINOPHILS 0.1 % (0-7); HEMATOCRIT 29.2 % (36.0-48.0); HEMOGLOBIN 9.5 g/dL (12-16); IMMATURE GRANULOCYTES 0.3 % (0-5); LYMPHOCYTES 10.1 % (15-50); MCH 29.8 pg (26.0-34.0); MCHC 32.5 g/dL (31.0-37.0); MCV 91.5 fL (80.0-100.0); MEAN PLATELET VOLUME 8.8 fL (7.4-10.4); MONOCYTES 5.7 % (2-11); NEUTROPHILS 83.7 % (40-80); PLATELET COUNT 353 10x3/uL (130-400); RBC 3.19 10x6/uL (4.00-5.40); WBC 7.9 10x3/uL (4.8-10.8)
[2019-02-05 11:49] LABS: ANION GAP 12.9 mmol/L (8-16); CALCIUM 8.8 mg/dL (8.5-10.1); CARBON DIOXIDE 28.1 mmol/L (21.0-32.0); CREATININE - SERUM 0.9 mg/dL (0.6-1.3)
[2019-02-05 13:26] VITALS: Ht 167.6 cm; Wt 28.1 kg
[2019-02-05 13:38] VITALS: BP 99/56
[2019-02-05 16:45] VITALS: BP 103/56
[2019-02-05 20:00] VITALS: BP 98/54
--- NOTE | 2019-02-05 20:00 | NUR ---
A/O WITH NO SIGNS OF ACUTE DISTRESS NOTED. IV TO THE RT WRIST WITH NO SWELLING OR REDNESS NOTED. LT ARM IN SLING WITH INCISION NOTED TO SHOULDER. JOSE ANTONIO ALARM ON. COMPLAINING OF 9/10 PAIN. DENIES FURTHER NEEDS. CONTINUE WITH PLAN OF CARE.
[2019-02-06] VITALS: BP 94/52
[2019-02-06 04:00] VITALS: BP 90/59
[2019-02-06 05:38] LABS: BASOPHILS 0 % (0-2); EOSINOPHILS 1.3 % (0-7); HEMATOCRIT 27.6 % (36.0-48.0); HEMOGLOBIN 9.1 g/dL (12-16); IMMATURE GRANULOCYTES 0.4 % (0-5); LYMPHOCYTES 13.9 % (15-50); MCH 29.7 pg (26.0-34.0); MCV 90.2 fL (80.0-100.0); MEAN PLATELET VOLUME 8.7 fL (7.4-10.4); MONOCYTES 6.4 % (2-11); PLATELET COUNT 346 10x3/uL (130-400); RBC 3.06 10x6/uL (4.00-5.40); RDW 14.1 % (11.5-14.5)
[2019-02-06 05:43] LABS: CALC OSMOLALITY 274 mosm/kg (275-300); CALCIUM 8.6 mg/dL (8.5-10.1); CARBON DIOXIDE 26.2 mmol/L (21.0-32.0); CHLORIDE - SERUM 100 mmol/L (98-107); CREATININE - SERUM 0.7 mg/dL (0.6-1.3); GLUCOSE 83 mg/dL (74-106); SODIUM 135 mmol/L (136-145); UREA NITROGEN 29 mg/dL (7-18); eGFR NON AFRICAN AMERICAN 88 mL/min (90-120)
[2019-02-06 05:47] LABS: WBC 5.6 10x3/uL (4.8-10.8)
[2019-02-06 05:52] LABS: POTASSIUM - SERUM 3.9 mmol/L (3.5-5.1)
--- NOTE | 2019-02-06 08:00 | NUR ---
ASSESSMENT PER FLOW SHEET. PT IS WITHOUT DISTRESS.FALL PREVENTION IN PLACE. AT BEDSIDE.CALL LIGHT IN REACH
[2019-02-06] MEDS ORDERED: HYDROCODON-ACE1 EAC7 PO (08:20)
[2019-02-06 09:42] VITALS: BP 109/59
--- NOTE | 2019-02-06 12:10 | MORECARE ---
CASE MANAGEMENT DISCHARGE SUMMARY PATIENT: KARTHIK NO UNIT: [id number] ADM DATE: 02/04/19 AGE: 68 : [birth year] SEX: F ROOM/BED: D.2204 AUTHOR: ASHISH HERRERA PHYSICIAN: REFERRING PHYSICIAN: INDERJIT KILGORE DO DATE OF SERVICE: 02/06/19 Discharge Plan Patient Name: KARTHIK NO Facility: [facility]:[place] : 1950 Planned Disposition: Home or Self Care Anticipated Discharge Date: Discharge Date: Expected LOS: Initial Reviewer: [email or web address] Initial Review Date: 02/04/2019 Generated: 02/06/19 1:10 pm Patient Name: KARTHIK NO Page 30101 at 1210 All edits/amendments must be made on the electronic document DICTATION DATE: 02/06/19 1210 INDUSTRIAL RELATIONS REPRESENTATIVE: TINY 02/06/19 1210 RPT#: [id number] DC DATE: STATUS: ADM IN [facility] [address] [place] [address] END OF REPORT
--- NOTE | 2019-02-06 12:18 | MORECARE ---
CASE MANAGEMENT DISCHARGE SUMMARY PATIENT: KARTHIK NO UNIT: [id number] ADM DATE: 02/04/19 AGE: 68 : 46 SEX: F ROOM/BED: D.2204 AUTHOR: ASHISH HERRERA PHYSICIAN: REFERRING PHYSICIAN: INDERJIT KILGORE DO DATE OF SERVICE: 02/06/19 Discharge Plan Patient Name: KARTHIK NO Facility: [facility]:[place] : 1950 Planned Disposition: Home or Self Care Anticipated Discharge Date: Discharge Date: Expected LOS: Initial Reviewer: [email or web address] Initial Review Date: 02/04/2019 Generated: 02/06/19 1:18 pm Comments DCP- Discharge Planning Updated by [email or web address]: Louise Molina on 02/06/19 11:[address] Patient Name: KARTHIK NO Admission Status: Elective Accout number: [id number] Admission Date: 02-04-2019 : 1950 Admission Diagnosis: Attending: INDERJIT KILGORE Current LOS: 2 Anticipated DC Date: Planned Disposition: Home or Self Care Primary Insurance: MEDICARE A & B Discharge Planning Comments: CM met with patient to complete initial dc planning assessment. CM educated patient on the CM role and verbal consent given by patient to complete assessment. Patient lives at home with spouse where she is independent with her care. At discharge patient plans to return home and feels this is a safe discharge. CM discussed availability of home health, rehab services, and medical equipment. She did not want/need home health. She has a walker, cane, and wheelchair but she does not use them. Patient denied known discharge needs at this time. CM will continue to follow and will assist as needed with dc plans/needs. Station Installer: Louise Molina DCPIA - Discharge Planning Initial Assessment Updated by [email or web address]: Louise Molina on 02/06/19 12:11 pm * Is the patient Alert and Oriented? Yes * How many steps to enter\exit or inside your home? 2/rail * PCP CHERRY * Pharmacy [facility] [address] * Preadmission Environment Home with Family * ADLs Independent * Equipment Cane Rolling Walker Wheelchair * List name and contact numbers for known caregivers / representatives who currently or will assist patient after discharge: EVERT [phone] * Verbal permission to speak to the caregivers and representatives has been obtained from the patient. N/A * Community resources currently utilized None * Additional services required to return to the preadmission environment? No * Can the patient safely return to the preadmission environment? Yes * Has this patient been hospitalized within the prior 30 days at any hospital? No Last DP export: 02/06/19 11:10 a Patient Name: KARTHIK NO Page [id number] at 1218 All edits/amendments must be made on the electronic document DICTATION DATE: 02/06/191217 BIN FILLER: TINY 02/06/198 RPT#: [id number] DC DATE: STATUS: ADM IN [facility] [address] [place] [address] END OF REPORT
--- NOTE | 2019-02-06 12:35 | NUR ---
IV DCD WITH CATH TIP INTACT. DISCHARGE INSTRUCTIONS,STATES UNDERSTANDING.
--- NOTE | 2019-02-06 12:45 | NUR ---
LEFT UNIT VIA WHEELCHAIR
--- NOTE | 2019-02-07 15:22 | MORECARE ---
CASE MANAGEMENT DISCHARGE SUMMARY PATIENT: KARTHIK NO UNIT: [id number] ADM DATE: 02/04/19 AGE: 68 : 46 SEX: F ROOM/BED: D.2204 AUTHOR: SHARONDOC PHYSICIAN: REFERRING PHYSICIAN: INDERJIT KILGORE DO DATE OF SERVICE: 02/07/19 Discharge Plan Patient Name: KARTHIK NO Facility: [facility]:[place] : 1950 Planned Disposition: Home or Self Care Anticipated Discharge Date: Discharge Date: 02/06/2019 Expected LOS: Initial Reviewer: [email or web address] Initial Review Date: 02/04/2019 Generated: 02/07/19 4:21 pm Comments DCP- Discharge Planning Updated by [email or web address]: Louise Molina on 02/06/19 11:[address] Patient Name: KARTHIK NO Admission Status: Elective Accout number: [id number] Admission Date: 02-04-2019 : 1950 Admission Diagnosis: Attending: INDERJIT KILGORE Current LOS: 2 Anticipated DC Date: Planned Disposition: Home or Self Care Primary Insurance: MEDICARE A & B Discharge Planning Comments: CM met with patient to complete initial dc planning assessment. CM educated patient on the CM role and verbal consent given by patient to complete assessment. Patient lives at home with spouse where she is independent with her care. At discharge patient plans to return home and feels this is a safe discharge. CM discussed availability of home health, rehab services, and medical equipment. She did not want/need home health. She has a walker, cane, and wheelchair but she does not use them. Patient denied known discharge needs at this time. CM will continue to follow and will assist as needed with dc plans/needs. Configuration Management Consultant: Louise Molina DCPIA - Discharge Planning Initial Assessment Updated by [email or web address]: Louise Molina on 02/06/19 12:11 pm * Is the patient Alert and Oriented? Yes * How many steps to enter\exit or inside your home? 2/rail * PCP CHERRY * [facility] [address] * Preadmission Environment Home with Family * ADLs Independent * Equipment Cane Rolling Walker Wheelchair * List name and contact numbers for known caregivers / representatives who currently or will assist patient after discharge: EVERT [phone] * Verbal permission to speak to the caregivers and representatives has been obtained from the patient. N/A * Community resources currently utilized None * Additional services required to return to the preadmission environment? No * Can the patient safely return to the preadmission environment? Yes * Has this patient been hospitalized within the prior 30 days at any hospital? No Last DP export: 02/06/19 11:18 a Patient Name: KARTHIK NO Page [phone] at 1522 All edits/amendments must be made on the electronic document DICTATION DATE: 02/07/19 152 LAW LIBRARIAN: TINY 02/07/19 152 RPT#: [id number] DC DATE:02/06/19 STATUS: DIS IN [facility] [address] [place] [address] END OF REPORT
== END 2019-02-06 12:45 | disposition home or self-care (01) | DRG 483 ==
LOC: D.MS 02-04 10:50 → D.SDCHOLD 02-04 10:50 → D.MS 02-04 20:23
PROVIDERS: Internal Medicine Nephrology; ADMIT Orthopaedic Surgery; ATTEND Orthopaedic Surgery
PROC: 0RRK00Z Replacement of Left Shoulder Joint with Reverse Ball and Socket Synthetic Substitute, Open Approach (ICD-10-PCS; principal; 2019-02-04 13:15)
DX: S42.202A Unspecified fracture of upper end of left humerus, initial encounter for closed fracture (principal); E43 Unspecified severe protein-calorie malnutrition; Z68.1 Body mass index [BMI] 19.9 or less, adult; I95.89 Other hypotension; D64.9 Anemia, unspecified; J44.9 Chronic obstructive pulmonary disease, unspecified; I34.1 Nonrheumatic mitral (valve) prolapse